=== PATIENT | male | born 1960 | race Caucasian/White ===

== ENCOUNTER 2020-11-29 14:30 | Outpatient (RCR) | payer OTHER, SELFPAY | END 2021-02-11 23:59 | LOC: IMMUN 14:30 | PROVIDERS: PCP Family Medicine; Visit Provider Family Medicine | DX: Z23 Encounter for immunization (principal) | CPT/HCPCS: 0001A; 0002A; 91300 ==

== ENCOUNTER → 2025-09-03 | Outpatient (CLI) | payer MEDICARE, OTHER, SELFPAY ==
[2025-09-12 04:07] LABS: PSA, Free 0.37 ng/mL; PSA, Free % 9.0 % (.); PSA, Total Ultrasensitive 4.120 ng/mL (0.000-4.000)
== END | disposition home or self-care (01) ==
LOC: LAB 10:24
PROVIDERS: PCP Student in an Organized Health Care Education/Training Program; Referring Provider Nurse Practitioner; Visit Provider Nurse Practitioner
DX: R97.20 Elevated prostate specific antigen [PSA] (principal)
CPT/HCPCS: 36415; 84153; 84154